=== PATIENT | male | born 1975 | race Two or more races ===

== ENCOUNTER → 2022-06-07 | Outpatient (CLI) | payer BC | LOC: CT 07:57 | PROVIDERS: ATTEND Internal Medicine | DX: R41.0 Disorientation, unspecified (principal) | CPT/HCPCS: 70450 ==

== ENCOUNTER → 2022-06-28 | Outpatient (CLI) | payer OTHER | LOC: MRI 10:21 | PROVIDERS: ATTEND Internal Medicine | DX: G31.2 Degeneration of nervous system due to alcohol (principal) | CPT/HCPCS: 70551 ==

== ENCOUNTER → 2022-06-29 | Outpatient (CLI) | payer OTHER ==
[~2022-06-29] MED LIST: GADOBENATE DIMEGLUMINE 1 ML IV ONE
== END ==
LOC: MRI 12:10
PROVIDERS: ATTEND Psychiatry & Neurology Neurology
DX: G91.2 (Idiopathic) normal pressure hydrocephalus (principal)
CPT/HCPCS: 70552

== ENCOUNTER → 2023-02-26 | Outpatient (REF) | payer OTHER | LOC: CT 16:15 | PROVIDERS: ATTEND Neurological Surgery | DX: G91.9 Hydrocephalus, unspecified (principal) | CPT/HCPCS: 70450 ==